=== PATIENT | female | born 1985 | race Caucasian/White ===

== ENCOUNTER 2022-10-13 09:48 | Emergency (ER) | payer MEDICAID ==
[~2022-10-13] VITALS: Ht 144.8 cm; Wt 52.6 kg
[2022-10-13 10:00] VITALS: BP_SYST 128
--- NOTE | 2022-10-13 10:09 | NUR ---
Patient to ER bed 7 to gown for evaluation. Side rails up. Report given to JEREMY PIERSON.
--- NOTE | 2022-10-13 10:15 | NUR ---
Patient brought in by self from home. Chief complaint right eye redness. Itchy, swelling to OD with OU drainage.
--- NOTE | 2022-10-13 10:30 | NUR ---
ER at bedside examining patient.
[2022-10-13] MEDS ORDERED: TETRACAINE HCL/PF 0.5% OPHTHALMIC DROPS 4 ML OP ONE (10:45)
[2022-10-13] MEDS ORDERED: FLUORESCEIN SODIUM 1 MG OPHTHALMIC STRIP OP ONE (10:45)
[2022-10-13] MEDS ORDERED: LEVO5DRO EACH EYE (11:00)
--- NOTE | 2022-10-13 11:00 | NUR ---
Patient given written and verbal discharge instructions and verbalizes understanding. ER MD discussed with patient the results and treatment provided. Patient in stable condition. ID arm band removed. Rx of cephalexin given. Patient educated on conjunctivitis and to follow up with PMD. Opportunity for questions provided and answered. Medication side effect fact sheet provided.
[2022-10-13 11:31] VITALS: BP_SYST 128
== END 2022-10-13 11:31 | disposition home or self-care (01) ==
LOC: SED 09:48
DX: H10.33 Unspecified acute conjunctivitis, bilateral (principal); Z79.899 Other long term (current) drug therapy
CPT/HCPCS: 99283

== ENCOUNTER 2023-12-10 02:24 | Emergency (ER) | payer MEDICAID, OTHER ==
[~2023-12-10] VITALS: Ht 144.8 cm; Wt 50.8 kg
[~2023-12-10 02:24] MED LIST: LEVO5DRO EACH EYE
[2023-12-10 02:28] VITALS: BP_SYST 183; PULSE 104; RESP 20; TEMP 98.2; O2SAT 98
[2023-12-10] MEDS ORDERED: LABETALOL HCL 20 MG/4 ML CARTRIDGE IVP ONE (02:45)
[2023-12-10] MEDS ORDERED: NITROGLYCERIN 1 INCH (GM) OINT. ONE (02:58)
[2023-12-10] MEDS: NITROGLYCERIN 1 INCH (GM) OINT. TP ONE (03:02)
[2023-12-10] MEDS: LABETALOL HCL 20 MG/4 ML CARTRIDGE IVP ONE (03:11)
[2023-12-10 03:35] LABS: BARBITURATE, URINE NEGATIVE (NEG <=200); BENZODIAZEPINE, URINE NEGATIVE (NEG <=150); CANNABINOID, URINE NEGATIVE (NEG <=50); COCAINE, URINE NEGATIVE (NEG <=150); METHAMPHETAMINES SCREEN,URINE NEGATIVE (NEG <=500); OPIATE, URINE NEGATIVE (NEG <=100); PHENCYCLIDINE SCREEN,URINE NEGATIVE (NEG <=25); UR TRICYCLIC ANTIDEPRESSANTS NEGATIVE (NEG <=300); URINE AMPHETAMINE NEGATIVE (NEG <=500); URINE METHADONE NEGATIVE (NEG <=200); URINE OXYCODONE SCREEN NEGATIVE (NEG <=100)
[2023-12-10 03:47] LABS: ANION GAP 12 (5-15); CALCIUM 9.1 mg/dL (8.4-11.0); CARBON DIOXIDE 22 mmol/L (23-29); CHLORIDE 105 mmol/L (98-107); GLUCOSE 106 mg/dL (74-106); POTASSIUM 3.7 mmol/L (3.5-5.1); SODIUM SERUM 139 mmol/L (136-145); UREA NITROGEN, BLOOD 18 mg/dL (8-21)
[2023-12-10 03:48] LABS: CREATININE 0.73 mg/dL (0.55-1.30); GFR AFRICAN AMERICAN 115 mL/min (>90)
[2023-12-10] MEDS ORDERED: FLOEARD EACH EYE (03:51)
[2023-12-10 03:52] LABS: GFR NON AFRICAN-AMERICAN 95 mL/min (>90)
[2023-12-10 03:54] LABS: ALANINE AMINOTRANSFERASE 21 U/L (12-78); ALBUMIN 3.8 g/dL (3.4-4.8); ASPARTATE AMINOTRANSFERASE 15 U/L (10-37); BILIRUBIN,DIRECT 0.1 mg/dL (0.0-0.3); TOTAL BILIRUBIN 0.3 mg/dL (0.0-1.0); TOTAL PROTEIN, SERUM 8.3 g/dL (6.4-8.3)
[2023-12-10] MEDS ORDERED: ATEN50TA PO (03:58)
[2023-12-10] MEDS ORDERED: LISI1TAB57 PO (03:58)
[2023-12-10 04:15] VITALS: BP_SYST 147; PULSE 82; RESP 16; TEMP 98; O2SAT 97
[2023-12-10 04:18] LABS: BASOPHILS # (AUTO) 0.1 K/uL (0.0-0.2); BASOPHILS % (AUTO) 0.9 % (0.0-2.0); EOSINOPHILS # (AUTO) 0.1 K/uL (0.0-0.4); EOSINOPHILS % (AUTO) 1.2 % (0.0-4.0); HEMATOCRIT 35.2 % (36-48); HEMOGLOBIN 11.6 g/dL (12.0-16.0); LYMPHOCYTES # (AUTO) 3.1 K/uL (1.0-5.5); LYMPHOCYTES % (AUTO) 31.9 % (20.5-51.5); MEAN CORPUSCULAR HEMOGLOBIN 24 pg (27-31); MEAN CORPUSCULAR HGB CONC 33 % (32-36); MEAN CORPUSCULAR VOLUME 73 fL (79.0-98.0); MONOCYTES # (AUTO) 0.6 K/uL (0.0-1.0); MONOCYTES % (AUTO) 5.9 % (1.7-9.3); NEUTROPHILS # (AUTO) 5.9 K/uL (1.8-7.7); NEUTROPHILS % (AUTO) 60.1 % (40.0-70.0); PLATELET COUNT (AUTO) 432 K/uL (130-430); RED BLOOD CELL COUNT(AUTO) 4.85 MIL/uL (4.2-6.2); RED CELL DISTRIBUTION WIDTH 16.8 % (9.0-15.0); WHITE BLOOD COUNT (AUTO) 9.8 K/uL (4.8-10.8)
== END 2023-12-10 04:15 | disposition home or self-care (01) ==
LOC: SED 02:24
DX: R03.0 Elevated blood-pressure reading, without diagnosis of hypertension (principal); R07.9 Chest pain, unspecified; R42 Dizziness and giddiness; R55 Syncope and collapse; Z79.899 Other long term (current) drug therapy
CPT/HCPCS: 36415; 71045; 80048; 80076; 80307; 81025; 83880; 84484; 85025; 96374; 99284